=== PATIENT | female | born 1985 | race Caucasian/White ===

== ENCOUNTER 2022-05-06 16:02 | Inpatient (IN) | payer MEDICARE, OTHER, SELFPAY ==
[2022-05-06 18:43] VITALS: BMI 37.4
[2022-05-06 20:05] VITALS: BP 170/83; PULSE 138; RESP 20; TEMP 36.3; O2SAT 100
--- NOTE | 2022-05-06 20:30 | PC.NURSE ---
Patient directly admitted from [facility] for DKA management. Patient arrived via EMS with insulin ggt running at 7.5 ml/hr. On admission patient's glucose was 181, DKA protocol in place and insulin drip restarted based on protocol. Patient's HR 140's and BP > 150's systolic. Patient also c/o 7/10 abdominal pain as well as being nauseous. PRN ketorolac and dilaudid given for pain and zofran given for nausea. IV metoprolol given and HR varied between 100's-110's after being given. Patient did have large, liquid emesis around ~2100 after zofran was given. Hourly blood sugars initiated. Patient able to answer all admission questions appropriately. Call light remains in place.
[2022-05-06] MEDS: INSULIN DRIP PREMIX 100 UNIT/100 ML PLAST..BAG 8.68 UNIT IV (20:31)
--- NOTE | 2022-05-06 20:49 | PM.HP.1 ---
History of Present Illness History of Present Illness Date Patient Seen: 05/06/22 Time Patient Seen: 20:49 Chief complaint: Unknown Narrative: Aruna Durand is a 36 y.o. female with diabetes type 2, hypertension, gastroparesis, GERD, insomnia, depression, anxiety, and borderline personality disorder originating from [place] to assist a friend with ?medical issues is admitted as a direct transfer from [facility] with euglycemic diabetic ketoacidosis. She stated her symptoms started this past Friday with no appetite and when she did eat she had 1 ?[employer]? meal consisting of 2 burritos. On Friday she was continuing to not feel well and took a small bite of food and promptly vomited. She states that she has been thirsty and drank 4 L bottles of water but kept throwing up. She presented to [facility] Emergency Department on Friday which was yesterday and left due to it being very busy. She did return today and was found to be in DKA. She denies fevers sweats or chills but states she is overheated most of the time she has shortness of breath abdominal pain and history of gastric acid. She also has bouts of constipation due to gastroparesis. She denies chest pain, dysuria, diarrhea, or upper lower extremity polyneuropathies. Patient's temp is recorded as 97.4 blood pressure 150/94 heart rate 141 respiratory rate 20 oxygen saturation of 100% on room air she weighs 108.5 kg. White count is 22.4 RBC 5.58 she has a significant left shift of 18,000, platelet count 427, sodium is 135 potassium 4.5 chloride 108 bicarb 9 BUN 3 glucose 182 an COVID PCR is negative. Hepatic liver panel, lactate, procalcitonin and TSH are all pending. [facility] hemoglobin A1c was reported at 7.8. Chest x-ray is ordered and pending. 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 Surgical History (Updated 05/06/22 @ 20:57 by CHICA Freeman) History of bilateral carpal tunnel release Family & Social History Family History (Updated 05/06/22 @ 21:19 by CHICA Freeman) Mother CVA (cerebral vascular accident) Father Diabetes mellitus Social History: , has a s/o, disabled Tobacco & Substance use: Denies tobacco and alcohol use, daily marijuana user 2 bowls/day Meds Home Medications and Allergies Home Medications Medication Instructions Recorded Confirmed Type aspirin 81 mg tablet 81 mg PO DAILY 05/06/22 05/06/22 History levomilnacipran 80 mg capsule,24 80 mg PO DAILY 05/06/22 05/06/22 History hr,extended release (Fetzima) metoprolol succinate 50 mg 75 mg PO BID 05/06/22 05/06/22 History tablet,extended release 24 hr pravastatin 80 mg tablet 80 mg PO DAILY 05/06/22 05/06/22 History Allergies Allergy/AdvReac Type Severity Reaction Status Date / Time polyethylene glycol 3350 Allergy Intermediate ITCHING Verified 05/06/22 21:00 [From Miralax] liraglutide [From Victoza] AdvReac Verified 05/06/22 20:42 metformin AdvReac Verified 05/06/22 20:42 Review of Systems Review of Systems ROS: Yes All systems reviewed with the patient and are negative except as otherwise documented Exam Narrative Exam Narrative: Gen: Alert, oriented, obese 36 y.o. female, appears ill and flushed HEENT: normocephalic, atraumatic, conjunctiva clear, sclera non-icteric, oral mucosa pink and moist Neck: supple, full ROM, no JVD, trachea is midline Resp: Lungs CTA, non-labored breathing CV: RRR, no murmur or rubs Abd: obese, soft, non-tender, normoactive BTs Skin: no lesions or rashes, dry and intact Neuro: Alert and oriented X 4 w/no focal deficits. Speech clear and coherent. Extremities: moves all 4 extremities, is ambulatory, negative Yessy?s sign Psyche: normal mood and affect. Objective Labs Result Diagrams: 05/06/22 21:00 05/06/22 21:00 Assessment & Plan Assessment & Plan narrative: Aruna Durand is admitted to the ICU for managment of a DKA and a leukocytosis of unknown origin. Diabetic euglycemic DKA, acute and present on admission Patient is initiated on insulin drip with DKA protocol Fluids were changed over to D5 half-normal saline she had arrived with an additional 20 mEq KCL BMP Q 4 hours with glucose checks q.1 hour Patient is NPO currently except for meds if she can take them Nausea and vomiting, acute, present on admission Assumed to be due to diabetic gastroparesis and possibly cannaboid/hyperemesis or cyclic vomiting syndrome IV Zofran and Reglan as needed Abdominal pain, acute, present on admission She received a 1 time dose of Dilaudid 0.5 mg at [facility] ED and has been written for as needed as well as IV Toradol if to daily limits Essential hypertension, not well controlled, present on admission She normally takes metoprolol 75 mg p.o. twice daily and when she attempted to take her night dose she threw it right up She is written for IV Lopressor 5 mg for a heart rate greater than 100 and a systolic greater than 140 Leukocytosis of unknown cause, present on admission Procalcitonin, chest x-ray and UA are pending VTE Prophylaxis: Wells risk score 0 X Enoxaparin 40 mg subQ once daily C Bilateral SCDs Patient is admitted to the inpatient intensive care service due to the severity of disease, risks of further disease progression and this stay is expected to exceed 2 midnights. FEN: IV fluids: D5 half-normal saline, diet: NPO and chips, labs: CBC, C/BMP, liver enzymes, Mag, PT/INR Consultants intercept ICU, care and involvement in the patient?s care is appreciated. Dispo: Probable discharge when stabilized Code status: Full code as discussed with the patient who identifies her significant other, Jim her surrogate and POA. [X] I have utilized all available immediate resources to obtain, update, or review of the patient's current medications VTE Deep Vein Thrombosis/Pulmonary Embolism Present on Admission: No MIPS - Admit I confirm the patient?s Advance Care Plan is present, Code status is documented, Surrogate decision maker is in patient?s record: Yes MIPS - DC The patient has current or prior documentation of left ventricular ejection fraction (LVEF) less than 40%, or moderate or severely depressed left ventricular systolic function.: No COVID-19 COVID-19 status: Negative Result date/Date tested (Pos, Neg/Pending): 05/06/22 Time Spent With Patient Critical Care time: I spent a total of 45 minutes of critical care time on this patient's care today; exclusive of procedural time.
[2022-05-06] MEDS: DEXTROSE 5%-0.45% NS 1,000 ML 100 ML IV (21:02)
[2022-05-06] MEDS: KETOROLAC 30 MG/ML VIAL 15 MG IV (21:18)
[2022-05-06] MEDS: ONDANSETRON 4 MG/2 ML INJ IV (21:18)
[2022-05-06 21:25] LABS: Add Manual Diff / Slide Review NO; Basophils Absolute Auto 100 /uL (0-100); Basophils Percent Auto 0.6 % (0-2); Eosinophils Absolute Auto 100 /uL (0-450); Eosinophils Percent Auto 0.3 % (2-4); Hemoglobin 13.6 g/dL (12.0-16.0); Lymphocytes Absolute Auto 3000 /uL (1100-4500); Lymphocytes Percent Auto 13.3 % (25-40); Mean Corpuscular HGB Conc 31.7 % (30-36); Mean Corpuscular Hemoglobin 24.4 PG (26-34); Mean Corpuscular Volume 77.1 fL (80-100); Monocytes Absolute Auto 1500 /uL (0-900); Monocytes Percent Auto 6.7 % (3-14); Neutrophils Absolute Auto 17800 /uL (1500-7000); Neutrophils Percent Auto 79.1 % (50-75); Platelet Count 427 X10^3/uL (150-400); Red Blood Cell Count 5.58 X10^6/uL (4.0-5.2); Red Cell Distribution Width 15.3 % (11.6-14.8); White Blood Cell Count 22.4 X10^3/uL (4.5-11.0)
[2022-05-06 21:31] LABS: BUN Creatinine Ratio 5.2 (6-22); Blood Urea Nitrogen 3 mg/dL (7-17); Calcium 8.9 mg/dL (8.4-10.2); Chloride 108 mmol/L (98-107); Estimated Glomerular Filt Rate > 60 mL/min (>60); Glucose 182 mg/dL (70-100); Sodium 135 mmol/L (137-145)
[2022-05-06 21:32] LABS: HEMOLYSIS 111 (0-50)
[2022-05-06 21:33] LABS: Potassium 4.5 mmol/L (3.4-5.1)
[2022-05-06 21:34] LABS: Carbon Dioxide 9 mmol/L (22-32)
--- NOTE | 2022-05-06 21:35 | DI.RAD.S_ITS ---
PROCEDURE: XR CHEST 1V INDICATIONS: elevated white count, DKA TECHNIQUE: One view of the chest was acquired. COMPARISON: [facility], CT, CT ABDOMEN PELVIS WITH CONTRAST, 05/06/2022, 14:44. FINDINGS: Surgical changes and devices: None. Lungs and pleura: Medial lung apices are partially obscured by patient's neck soft tissues. Visualized lungs are clear. There is mild elevation of the right hemidiaphragm. No pleural effusions or pneumothorax. Mediastinum: Mediastinal contours appear normal. Heart size is normal. Bones and chest wall: No suspicious bony lesions. Overlying soft tissues appear unremarkable. IMPRESSION: 1. No definite acute cardiopulmonary disease. Dictated by: Jose Zhang M.D. on 05/06/2022 at 22:48 Approved by: Jose Zhang M.D. on 05/06/2022 at 22:49
[2022-05-06] MEDS: METOPROLOL TARTRATE 5 MG/5 ML INJ IV (21:52)
[2022-05-06 21:53] LABS: COVID-19 CEPHEID PCR (VTM/NP) Negative (Negative)
[2022-05-06 22:00] VITALS: BP 131/83; PULSE 105; RESP 17; O2SAT 97
[2022-05-06 22:05] VITALS: PULSE 98; RESP 17; O2SAT 98
[2022-05-06] MEDS: HYDROMORPHONE 0.5 MG INJ IV (22:09)
[2022-05-06 22:30] VITALS: PULSE 108; RESP 18; O2SAT 95
[2022-05-06 22:30] LABS: Alanine Aminotransferase 17 IU/L (<35); Albumin 4.6 g/dL (3.5-5.0); Albumin Globulin Ratio 1.2 (1.0-2.8); Alkaline Phosphatase 120 U/L (38-126); Aspartate Aminotransferase 13 IU/L (14-36); Bilirubin Total 0.5 mg/dL (0.2-1.3); Bilirubin Unconjugated 0.4 mg/dL (0.0-1.1); HEMOLYSIS < 15 (0-50); Lactate (Lactic Acid) 0.9 mmol/L (0.7-2.1); Total Protein 8.6 g/dL (6.3-8.2)
[2022-05-06 22:47] LABS: Procalcitonin 0.06 ng/mL (<0.5)
[2022-05-06 23:00] VITALS: BP 118/79; PULSE 113; RESP 18; O2SAT 95
--- NOTE | 2022-05-06 23:09 | PM.CN.EICU ---
History of Present Illness Consult details IF CAMERA ACTIVATED, patient seen via real-time interactive audiovisual communication: Camera activated Date Patient Seen: 04/15/22 Chief complaint: Unknown Consent obtained for tele-veneer sawyer care: Yes Patient Location: ICU Provider location (State): [place] Other participants/roles: LONDON Vyas Narrative: 36 y.o. female with diabetes type 2, hypertension, gastroparesis, GERD, insomnia, depression, anxiety, and borderline personality disorder transferred from from [facility] w/ DKA. Symptoms started 3 days ago; sought medical attention at an ED but left since it was busy. AG 17 w/ normal procalcitonin and lactate. WBC 22.4. [facility] hemoglobin A1c was 7.8. Chest x-ray w/o acute disease. 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 Surgical History History of bilateral carpal tunnel release Family History Mother CVA (cerebral vascular accident) Father Diabetes mellitus Social History marital status: unmarried,single household members: significant other caregiver/support person: No occupational status: disabled Smoking Status: Never smoker alcohol intake: never substance use type: marijuana additional social history: Lives in [place] Current Medications Current Medications Medications: Home Medications aspirin 81 mg tablet 81 mg PO DAILY 05/06/22 [History Confirmed 05/06/22] levomilnacipran 80 mg capsule,24 hr,extended release (Fetzima) 80 mg PO DAILY 05/06/22 [History Confirmed 05/06/22] metoprolol succinate 50 mg tablet,extended release 24 hr 75 mg PO BID 05/06/22 [History Confirmed 05/06/22] pravastatin 80 mg tablet 80 mg PO DAILY 05/06/22 [History Confirmed 05/06/22] Visit Medications (administered) Generic Name Dose Route Start Last Admin Trade Name Freq PRN Reason Stop Dose Admin Hydromorphone HCl 0.5 mg 05/06/22 21:01 05/06/22 22:09 Hydromorphone 0.5 Mg Inj IV 0.5 mg Q4H PRN Administration Pain, Severe (7-10) INSULIN DRIP PREMIX 100 unit in 100 mls @ 6 mls/hr 05/06/22 19:00 05/06/22 22:06 Myxredlin Drip Premix IV 0.08 units/kg/hr TITRATE FABRICIO 8.68 mls/hr Titration Protocol Dextrose/Sodium Chloride 1,000 mls @ 100 mls/hr 05/06/22 20:45 05/06/22 21:02 Dextrose 5%-0.45% Ns IV 100 mls/hr CONT FABRICIO Administration Ketorolac Tromethamine 15 mg 05/06/22 21:01 05/06/22 21:18 Ketorolac 30 Mg/Ml Vial IV 05/11/22 21:01 15 mg Q8H PRN Administration Pain, Moderate (4-6) Metoprolol Succinate 75 mg 05/06/22 21:00 05/06/22 21:34 Metoprolol Er 50 Mg Tablet PO Not Given BID FABRICIO Metoprolol Tartrate 5 mg 05/06/22 21:48 05/06/22 21:52 Metoprolol Tartrate 5 Mg/5 Ml Inj IV 5 mg Q2HR PRN Administration Heart Rate- High Ondansetron HCl 4 mg 05/06/22 20:44 05/06/22 21:18 Ondansetron 4 Mg/2 Ml Inj IV 4 mg Q6HR PRN Administration Nausea And Vomiting Exam Vital Signs (past 8 hours): - 05/06/22 20:05 05/06/22 22:00 05/06/22 22:00 Temperature 97.4 F L Pulse Rate 138 H 105 H Respiratory Rate 20 17 Blood Pressure 170/83 H 131/83 Pulse Oximetry 100 97 Oxygen Delivery Method 05/06/22 22:05 05/06/22 20:30 Temperature Pulse Rate 98 H Respiratory Rate 17 Blood Pressure Pulse Oximetry 98 Oxygen Delivery Method Room Air Oxygen Delivery Method Room Air Const General: comfortable Resp Effort & Inspection: normal respiratory effort Objective Labs Result Diagrams: 05/06/22 21:00 05/06/22 21:00 Labs: Laboratory Results - last 24 hr 05/06/22 05/06/2205/06/22 20:45 20:45 21:00 WBC 22.4 H RBC 5.58 H Hgb 13.6 Hct 43.0 MCV 77.1 L MCH 24.4 L MCHC 31.7 RDW 15.3 H Plt Count 427 H Neut % (Auto) 79.1 H Lymph % (Auto) 13.3 L [place] % (Auto) 6.7 Eos % (Auto) 0.3 L Baso % (Auto) 0.6 Neut # (Auto) 27812 H Lymph # (Auto) 3000 [place] # (Auto) 1500 H Eos # (Auto) 100 Baso # (Auto) 100 Sodium Potassium Chloride Carbon Dioxide BUN Creatinine Estimated GFR BUN/Creatinine Ratio Glucose Lactate Calcium Total Bilirubin Conjugated Bilirubin Unconjugated Bilirubin AST ALT Alkaline Phosphatase Total Protein Albumin Globulin Albumin/Globulin Ratio Procalcitonin Nasal Screen MRSA (PCR) Negative for mrsa SARS-CoV-2 (PCR) Negative 05/06/22 05/06/22 05/06/22 21:00 21:45 21:45 WBC RBC Hgb Hct MCV MCH MCHC RDW Plt Count Neut % (Auto) Lymph % (Auto) [place] % (Auto) Eos % (Auto) Baso % (Auto) Neut # (Auto) Lymph # (Auto) [place] # (Auto) Eos # (Auto) Baso # (Auto) Sodium 135 L Potassium 4.5 Chloride 108 H Carbon Dioxide 9 L* BUN 3 L Creatinine 0.58 Estimated GFR > 60 BUN/Creatinine Ratio 5.2 L Glucose 182 H Lactate 0.9 Calcium 8.9 Total Bilirubin Conjugated Bilirubin Unconjugated Bilirubin AST ALT Alkaline Phosphatase Total Protein Albumin Globulin Albumin/Globulin Ratio Procalcitonin 0.06 Nasal Screen MRSA (PCR) SARS-CoV-2 (PCR) 05/06/22 21:45 WBC RBC Hgb Hct MCV MCH MCHC RDW Plt Count Neut % (Auto) Lymph % (Auto) [place] % (Auto) Eos % (Auto) Baso % (Auto) Neut # (Auto) Lymph # (Auto) [place] # (Auto) Eos # (Auto) Baso # (Auto) Sodium Potassium Chloride Carbon Dioxide BUN Creatinine Estimated GFR BUN/Creatinine Ratio Glucose Lactate Calcium Total Bilirubin 0.5 Conjugated Bilirubin 0.0 Unconjugated Bilirubin 0.4 AST 13 L ALT 17 Alkaline Phosphatase 120 Total Protein 8.6 H Albumin 4.6 Globulin 4.0 Albumin/Globulin Ratio 1.2 Procalcitonin Nasal Screen MRSA (PCR) SARS-CoV-2 (PCR) Assessment & Plan Assessment and plan (1) DKA (diabetic ketoacidosis): Qualifiers: Diabetes mellitus type: other specified (including JAYSHREE) Diabetes mellitus complication detail: without coma Qualified Code(s): E13.10 - Other specified diabetes mellitus with ketoacidosis without coma Status: Acute Plan: -Continue DKA protocol -Urinalysis and status will be checked if not already checked @ outside ED --> discussed w/ LONDON Asael Time Spent With Patient Critical Care time: I spent a total of 15 minutes of time on this patient's care today.
[2022-05-06 23:30] VITALS: PULSE 103; RESP 19; O2SAT 95
[2022-05-07] VITALS (47 sets, daily range): BP systolic 110–163; BP diastolic 58–96; PULSE 93–139; RESP 8–59; TEMP 36.4–37.3; O2SAT 95–100
[2022-05-07] MEDS: HYDROMORPHONE 0.5 MG INJ IV ×4 (04:25→21:54)
[2022-05-07] MEDS: ONDANSETRON 4 MG/2 ML INJ IV ×2 (04:25→20:31)
[2022-05-07 05:26] LABS: Add Manual Diff / Slide Review NO; Basophils Absolute Auto 100 /uL (0-100); Basophils Percent Auto 0.5 % (0-2); Eosinophils Absolute Auto 100 /uL (0-450); Eosinophils Percent Auto 0.7 % (2-4); Hematocrit 40.3 % (36-46); Hemoglobin 12.8 g/dL (12.0-16.0); Lymphocytes Absolute Auto 2600 /uL (1100-4500); Lymphocytes Percent Auto 18.7 % (25-40); Mean Corpuscular HGB Conc 31.7 % (30-36); Mean Corpuscular Volume 75.9 fL (80-100); Monocytes Absolute Auto 900 /uL (0-900); Monocytes Percent Auto 6.8 % (3-14); Neutrophils Absolute Auto 10000 /uL (1500-7000); Neutrophils Percent Auto 73.3 % (50-75); Platelet Count 311 X10^3/uL (150-400); Red Blood Cell Count 5.31 X10^6/uL (4.0-5.2); Red Cell Distribution Width 15.2 % (11.6-14.8); White Blood Cell Count 13.6 X10^3/uL (4.5-11.0)
[2022-05-07 05:34] LABS: Alanine Aminotransferase 16 IU/L (<35); Albumin 4.3 g/dL (3.5-5.0); Albumin Globulin Ratio 1.1 (1.0-2.8); Alkaline Phosphatase 107 U/L (38-126); Aspartate Aminotransferase 13 IU/L (14-36); BUN Creatinine Ratio 7.8 (6-22); Bilirubin Total 0.5 mg/dL (0.2-1.3); Blood Urea Nitrogen 4 mg/dL (7-17); Calcium 8.9 mg/dL (8.4-10.2); Carbon Dioxide 13 mmol/L (22-32); Chloride 107 mmol/L (98-107); Estimated Glomerular Filt Rate > 60 mL/min (>60); Globulin 3.8 g/dL (1.7-4.1); Glucose 186 mg/dL (70-100); HEMOLYSIS < 15 (0-50); Potassium 3.8 mmol/L (3.4-5.1); Sodium 135 mmol/L (137-145); Total Protein 8.1 g/dL (6.3-8.2)
[2022-05-07 05:37] LABS: Ketones (Beta-Hydroxybutyrate) 3.56 mmol/L (<0.27)
[2022-05-07] MEDS: METOPROLOL TARTRATE 5 MG/5 ML INJ IV ×2 (06:06→09:29)
[2022-05-07 06:13] LABS: TSH w/ Reflex to FT4 2.36 uIU/mL (0.47-4.68)
[2022-05-07] MEDS: DEXTROSE 5%-0.45% NS 1,000 ML 100 ML IV ×2 (07:06→17:05)
[2022-05-07 07:07] LABS: Appearance Urine UA CLEAR; Bilirubin Urine UA 1+ (NEGATIVE); Color Urine UA YELLOW; Glucose Urine UA 1+ g/dL (Negative); Ketones Urine UA 3+ (NEGATIVE); Leukocyte Esterase Urine UA NEGATIVE (NEGATIVE); Nitrite Urine UA NEGATIVE (Negative); Occult Blood Urine UA 1+ (Negative); Protein Urine UA 2+ (Negative); Specific Gravity Urine UA 1.025 (1.000-1.035); Urobilinogen Urine UA 0.2 E.U./dL (0.2)
[2022-05-07 07:14] LABS: Bacteria Urine None Seen; Ictotest Urine Negative (Negative); RBC Urine 1-5/HPF (0-5/HPF); Squamous Epithelial Cell Urine 1-5 /HPF (0-5/HPF); WBC Urine None Seen (0-5/HPF)
[2022-05-07 07:15] LABS: Culture Indicated Urine Cult Not Indicated; Hyaline Casts Urine 1-5/LPF
--- NOTE | 2022-05-07 07:55 | P.PN_ITS ---
Subjective Subjective Date Patient Seen: 05/07/22 Time Patient Seen: 11:00 Interval history: Continues to have nausea and cannot tolerate po intake. Still on insulin drip as gap now at 14 and hasn't closed yet. She notes generalized abd pain but not specifically in RUQ. Has not had BM in 4 days. Exam Vital Signs (past 8 hours): - 05/07/22 00:00 05/07/22 00:00 05/07/22 00:00 Temperature Pulse Rate 110 H Respiratory Rate 19 Blood Pressure 131/93 H Pulse Oximetry 96 Oxygen Delivery Method Room Air 05/07/22 00:00 05/07/22 00:30 05/07/22 01:00 Temperature 99.2 F Pulse Rate 112 H Respiratory Rate 19 Blood Pressure 110/67 Pulse Oximetry 95 Oxygen Delivery Method 05/07/22 01:00 05/07/22 01:30 05/07/22 02:00 Temperature Pulse Rate 100 H 105 H Respiratory Rate 18 20 Blood Pressure 135/81 Pulse Oximetry 97 97 Oxygen Delivery Method 05/07/22 02:00 05/07/22 02:30 05/07/22 03:00 Temperature Pulse Rate 108 H 112 H Respiratory Rate 20 21 Blood Pressure 131/88 Pulse Oximetry 100 96 Oxygen Delivery Method 05/07/22 03:00 05/07/22 03:30 05/07/22 04:00 Temperature Pulse Rate 124 H 105 H 133 H Respiratory Rate 15 19 30 H Blood Pressure Pulse Oximetry 96 99 99 Oxygen Delivery Method 05/07/22 04:00 05/07/22 05:00 05/07/22 04:00 Temperature 97.5 F L Pulse Rate Respiratory Rate Blood Pressure 142/78 H Pulse Oximetry Oxygen Delivery Method Room Air 05/07/22 05:00 05/07/22 05:00 05/07/22 05:05 Temperature Pulse Rate 119 H 117 H Respiratory Rate 16 16 Blood Pressure 137/71 Pulse Oximetry 96 96 Oxygen Delivery Method 05/07/22 05:30 05/07/22 06:00 05/07/22 06:00 Temperature Pulse Rate 119 H 119 H Respiratory Rate 17 13 Blood Pressure 127/80 Pulse Oximetry 95 96 Oxygen Delivery Method Oxygen Delivery Method Room Air Narrative Exam Narrative: Gen: Alert, oriented, obese 36 y.o. female, appears ill and diaphoretic HEENT: normocephalic, atraumatic, conjunctiva clear, sclera non-icteric, oral mucosa pink and moist Neck: supple, full ROM, no JVD, trachea is midline Resp: Lungs CTA, non-labored breathing CV: RRR, no murmur or rubs Abd: obese, soft, generalized tenderness, reduced BTs Skin: no lesions or rashes, dry and intact Neuro: Alert and oriented X 4 w/no focal deficits. Speech clear and coherent. Extremities: moves all 4 extremities, is ambulatory, negative Yessy?s sign Psyche: normal mood and affect. Objective Labs Result Diagrams: 05/07/22 05:00 05/07/22 13:00 Labs: Laboratory Results - last 24 hr 05/06/22 05/06/22 05/06/22 20:45 20:45 21:00 WBC 22.4 H RBC 5.58 H Hgb 13.6 Hct 43.0 MCV 77.1 L MCH 24.4 L MCHC 31.7 RDW 15.3 H Plt Count 427 H Neut % (Auto) 79.1 H Lymph % (Auto) 13.3 L [place] % (Auto) 6.7 Eos % (Auto) 0.3 L Baso % (Auto) 0.6 Neut # (Auto) 92942 H Lymph # (Auto) 3000 [place] # (Auto) 1500 H Eos # (Auto) 100 Baso # (Auto) 100 Sodium Potassium Chloride Carbon Dioxide BUN Creatinine Estimated GFR BUN/Creatinine Ratio Glucose Lactate Calcium Total Bilirubin Conjugated Bilirubin Unconjugated Bilirubin AST ALT Alkaline Phosphatase Total Protein Albumin Globulin Albumin/Globulin Ratio Procalcitonin TSH Urine Color Urine Appearance Urine pH Ur Specific [place] Urine Protein Urine Glucose (UA) Urine Ketones Urine Occult Blood Urine Nitrate Urine Bilirubin Ur Bilirubin Confirm Urine Urobilinogen Ur Leukocyte Esterase Urine RBC Urine WBC Ur Squamous Epith Cells Urine Bacteria Hyaline Casts Ur Culture Indicated? Nasal Screen MRSA (PCR) Negative for mrsa Ketones SARS-CoV-2 (PCR) Negative 05/06/22 05/06/22 05/06/22 21:00 21:45 21:45 WBC RBC Hgb Hct MCV MCH MCHC RDW Plt Count Neut % (Auto) Lymph % (Auto) [place] % (Auto) Eos % (Auto) Baso % (Auto) Neut # (Auto) Lymph # (Auto) [place] # (Auto) Eos # (Auto) Baso # (Auto) Sodium 135 L Potassium 4.5 Chloride 108 H Carbon Dioxide 9 L* BUN 3 L Creatinine 0.58 Estimated GFR > 60 BUN/Creatinine Ratio 5.2 L Glucose 182 H Lactate 0.9 Calcium 8.9 Total Bilirubin Conjugated Bilirubin Unconjugated Bilirubin AST ALT Alkaline Phosphatase Total Protein Albumin Globulin Albumin/Globulin Ratio Procalcitonin 0.06 TSH Urine Color Urine Appearance Urine pH Ur Specific [place] Urine Protein Urine Glucose (UA) Urine Ketones Urine Occult Blood Urine Nitrate Urine Bilirubin Ur Bilirubin Confirm Urine Urobilinogen Ur Leukocyte Esterase Urine RBC Urine WBC Ur Squamous Epith Cells Urine Bacteria Hyaline Casts Ur Culture Indicated? Nasal Screen MRSA (PCR) Ketones SARS-CoV-2 (PCR) 05/06/22 05/07/22 05/07/22 21:45 05:00 05:00 WBC 13.6 H RBC 5.31 H Hgb 12.8 Hct 40.3 MCV 75.9 L MCH 24.0 L MCHC 31.7 RDW 15.2 H Plt Count 311 Neut % (Auto) 73.3 Lymph % (Auto) 18.7 L [place] % (Auto) 6.8 Eos % (Auto) 0.7 L Baso % (Auto) 0.5 Neut # (Auto) 69271 H Lymph # (Auto) 2600 [place] # (Auto) 900 Eos # (Auto) 100 Baso # (Auto) 100 Sodium Potassium Chloride Carbon Dioxide BUN Creatinine Estimated GFR BUN/Creatinine Ratio Glucose Lactate Calcium Total Bilirubin 0.5 Conjugated Bilirubin 0.0 Unconjugated Bilirubin 0.4 AST 13 L ALT 17 Alkaline Phosphatase 120 Total Protein 8.6 H Albumin 4.6 Globulin 4.0 Albumin/Globulin Ratio 1.2 Procalcitonin TSH 2.36 Urine Color Urine Appearance Urine pH Ur Specific [place] Urine Protein Urine Glucose (UA) Urine Ketones Urine Occult Blood Urine Nitrate Urine Bilirubin Ur Bilirubin Confirm Urine Urobilinogen Ur Leukocyte Esterase Urine RBC Urine WBC Ur Squamous Epith Cells Urine Bacteria Hyaline Casts Ur Culture Indicated? Nasal Screen MRSA (PCR) Ketones SARS-CoV-2 (PCR) 05/07/22 05/07/22 05/07/22 05:00 05:00 06:49 WBC RBC Hgb Hct MCV MCH MCHC RDW Plt Count Neut % (Auto) Lymph % (Auto) [place] % (Auto) Eos % (Auto) Baso % (Auto) Neut # (Auto) Lymph # (Auto) [place] # (Auto) Eos # (Auto) Baso # (Auto) Sodium 135 L Potassium 3.8 Chloride 107 Carbon Dioxide 13 L BUN 4 L Creatinine 0.51 L Estimated GFR > 60 BUN/Creatinine Ratio 7.8 Glucose 186 H Lactate Calcium 8.9 Total Bilirubin 0.5 Conjugated Bilirubin Unconjugated Bilirubin AST 13 L ALT 16 Alkaline Phosphatase 107 Total Protein 8.1 Albumin 4.3 Globulin 3.8 Albumin/Globulin Ratio 1.1 Procalcitonin TSH Urine Color Yellow Urine Appearance Clear Urine pH 5.0 Ur Specific [place] 1.025 Urine Protein 2+ H Urine Glucose (UA) 1+ H Urine Ketones 3+ H Urine Occult Blood 1+ H Urine Nitrate Negative Urine Bilirubin 1+ H Ur Bilirubin Confirm Negative Urine Urobilinogen 0.2 Ur Leukocyte Esterase Negative Urine RBC 1-5/hpf Urine WBC None seen Ur Squamous Epith Cells 1-5 /hpf Urine Bacteria None seen Hyaline Casts 1-5/lpf Ur Culture Indicated? 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 Surgical History History of bilateral carpal tunnel release Family History Mother CVA (cerebral vascular accident) Father Diabetes mellitus Social History marital status: unmarried,single household members: significant other caregiver/support person: No occupational status: disabled Smoking Status: Never smoker alcohol intake: never substance use type: marijuana additional social history: Lives in [place] Assessment & Plan Assessment & Plan narrative: Euglycemic DKA, acute and present on admission * patient takes jardiance, presented to [facility] with anion gap 31, bicarb 9 and pH 7.19 although BG of 250 * continue insulin drip with DKA protocol * BMP Q 4 hours with glucose checks q.1 hour * Patient is NPO currently except for meds if she can take them, advance diet as tolerated * anion gap now at 14, will start home humulin at 50 units BID normally takes 70 units BID Nausea and vomiting, acute, present on admission * Potentially due to DKA * Abd US shows gallbladder sludge, stones and mild distention, but no wall thickening or CBD dilation. With normal LFT's and alk phos cholecystitis unlikely. * IV Zofran and Reglan as needed Abdominal pain, acute, present on admission * She received a 1 time dose of Dilaudid 0.5 mg at [facility] ED and has been written for as needed as well as IV Toradol if to daily limits Essential hypertension, not well controlled, present on admission * She normally takes metoprolol 75 mg p.o. twice daily and when she attempted to take her night dose she threw it up Leukocytosis of unknown cause, present on admission, improving * Procalcitonin, chest x-ray and UA normal * likely stress reaction with dehydration from vomiting as all 3 cell lines decreased with fluids * currently 13 down from 22 VTE Prophylaxis: Enoxaparin 40 mg subQ once daily Dispo: Home in 1-2 days. Code status: Full code as discussed with the patient who identifies her significant other, Jim her surrogate and POA. COVID-19 COVID-19 status: Negative Result date/Date tested (Pos, Neg/Pending): 05/06/22 Time Spent With Patient Critical Care time: I spent a total of [] minutes of critical care time on this patient's care today; this time is exclusive of procedural time. Quality VTE Deep Vein Thrombosis/Pulmonary Embolism Present on Admission: No
[2022-05-07] MEDS: ENOXAPARIN 40 MG/0.4 ML SYRINGE SUBCUT (08:56)
[2022-05-07] MEDS: METOCLOPRAMIDE 10 MG/2 ML INJ IV (08:56)
[2022-05-07] MEDS: POTASSIUM CHLORIDE IN WATER 10 MEQ/100 ML PIGGYBACK 100 MEQ IV ×4 (08:57→11:49)
[2022-05-07] MEDS: INSULIN DRIP PREMIX 100 UNIT/100 ML PLAST..BAG 5.4 UNIT IV (09:06)
[2022-05-07 09:11] LABS: BUN Creatinine Ratio 8.3 (6-22); Blood Urea Nitrogen 4 mg/dL (7-17); Calcium 9.1 mg/dL (8.4-10.2); Carbon Dioxide 16 mmol/L (22-32); Chloride 106 mmol/L (98-107); Estimated Glomerular Filt Rate > 60 mL/min (>60); Glucose 156 mg/dL (70-100); HEMOLYSIS 24 (0-50); Sodium 136 mmol/L (137-145)
--- NOTE | 2022-05-07 09:58 | DI.US.S_ITS ---
PROCEDURE: US ABDOMEN LIMITED INDICATIONS: Assessed for cholecystitis, CBD dilation, liver pathology TECHNIQUE: Real-time focused scanning was performed of the abdomen, with image documentation. COMPARISON: None. FINDINGS: Limited exam due to bowel gas patient body habitus. Poorly visualized liver with diffuse moderate hepatic steatosis. No focal hepatic mass identified. Distended appearance of the gallbladder with moderate volume dependently layering material likely representing sludge or small stones. Gallbladder wall is not appear thickened. There is no definite pericholecystic fluid. No intrahepatic or extrahepatic biliary ductal dilatation. Pancreas is obscured by bowel gas and body habitus. IMPRESSION: Limited exam due to bowel gas and body habitus. Distended gallbladder containing sludge or small gallstones. No wall thickening or pericholecystic fluid to serve as definitive evidence of cholecystitis, although the distension raises concern for cystic duct obstruction. Early cholecystitis cannot be completely excluded. Dictated by: Breezy Paul M.D. on 05/07/2022 at 11:38 Approved by: Breezy Paul M.D. on 05/07/2022 at 11:40
--- NOTE | 2022-05-07 09:59 | PM.PN.EICU ---
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 Patient Location: ICU Provider location (State): [place] Other participants/roles: na Current Medications Current Medications Medications: Home Medications aspirin 81 mg tablet 81 mg PO DAILY 05/06/22 [History Confirmed 05/06/22] levomilnacipran 80 mg capsule,24 hr,extended release (Fetzima) 80 mg PO DAILY 05/06/22 [History Confirmed 05/06/22] metoprolol succinate 50 mg tablet,extended release 24 hr 75 mg PO BID 05/06/22 [History Confirmed 05/06/22] pravastatin 80 mg tablet 80 mg PO DAILY 05/06/22 [History Confirmed 05/06/22] Visit Medications (administered) Generic Name Dose Route Start Last Admin Trade Name Freq PRN Reason Stop Dose Admin Aspirin 81 mg 05/07/22 09:00 05/07/22 08:07 Aspirin 81 Mg Chew Tab PO Not Given DAILY FABRICIO Enoxaparin Sodium 40 mg 05/07/22 09:00 05/07/22 08:56 Enoxaparin 40 Mg/0.4 Ml Syringe SUBCUT 40 mg DAILY FABRICIO Administration Hydromorphone HCl 0.5 mg 05/06/22 21:01 05/07/22 04:25 Hydromorphone 0.5 Mg Inj IV 0.5 mg Q4H PRN Administration Pain, Severe (7-10) INSULIN DRIP PREMIX 100 unit in 100 mls @ 6 mls/hr 05/06/22 19:00 05/07/22 09:06 Myxredlin Drip Premix IV 0.05 units/kg/hr TITRATE FABRICIO 5.4 mls/hr Administration Protocol Dextrose/Sodium Chloride 1,000 mls @ 100 mls/hr 05/06/22 20:45 05/07/22 07:06 Dextrose 5%-0.45% Ns IV 100 mls/hr CONT FABRICIO Administration POTASSIUM CHLORIDE IN WATER 10 meq in 100 mls @ 100 mls/hr 05/07/22 08:00 05/07/22 08:57 Potassium Cl 10 Meq/100 Ml Radha IV 05/07/22 11:59 100 mls/hr Q1H FABRICIO Administration Ketorolac Tromethamine 15 mg 05/06/22 21:01 05/06/22 21:18 Ketorolac 30 Mg/Ml Vial IV 05/11/22 21:01 15 mg Q8H PRN Administration Pain, Moderate (4-6) Metoclopramide HCl 10 mg 05/06/22 20:44 05/07/22 08:56 Metoclopramide 10 Mg/2 Ml Inj IV 10 mg Q6HR PRN Administration Nausea And Vomiting Metoprolol Succinate 75 mg 05/06/22 21:00 05/06/22 21:34 Metoprolol Er 50 Mg Tablet PO Not Given BID [facility] Metoprolol Tartrate 5 mg 05/06/22 21:48 05/07/22 09:29 Metoprolol Tartrate 5 Mg/5 Ml Inj IV 5 mg Q2HR PRN Administration Heart Rate- High Ondansetron HCl 4 mg 05/06/22 20:44 05/07/22 04:25 Ondansetron 4 Mg/2 Ml Inj IV 4 mg Q6HR PRN Administration Nausea And Vomiting Pravastatin Sodium 80 mg 05/07/22 09:00 05/07/22 08:07 Pravastatin 20 Mg Tablet PO Not Given DAILY [facility] Objective Labs Result Diagrams: 05/07/22 05:00 05/07/22 08:56 Labs: Laboratory Results - last 24 hr 05/06/22 05/06/22 05/06/22 20:45 20:45 21:00 WBC 22.4 H RBC 5.58 H Hgb 13.6 Hct 43.0 MCV 77.1 L MCH 24.4 L MCHC 31.7 RDW 15.3 H Plt Count 427 H Neut % (Auto) 79.1 H Lymph % (Auto) 13.3 L [place] % (Auto) 6.7 Eos % (Auto) 0.3 L Baso % (Auto) 0.6 Neut # (Auto) 97555 H Lymph # (Auto) 3000 [place] # (Auto) 1500 H Eos # (Auto) 100 Baso # (Auto) 100 Sodium Potassium Chloride Carbon Dioxide BUN Creatinine Estimated GFR BUN/Creatinine Ratio Glucose Lactate Calcium Total Bilirubin Conjugated Bilirubin Unconjugated Bilirubin AST ALT Alkaline Phosphatase Total Protein Albumin Globulin Albumin/Globulin Ratio Procalcitonin TSH Urine Color Urine Appearance Urine pH Ur Specific [place] Urine Protein Urine Glucose (UA) Urine Ketones Urine Occult Blood Urine Nitrate Urine Bilirubin Ur Bilirubin Confirm Urine Urobilinogen Ur Leukocyte Esterase Urine RBC Urine WBC Ur Squamous Epith Cells Urine Bacteria Hyaline Casts Ur Culture Indicated? Nasal Screen MRSA (PCR) Negative for mrsa Ketones SARS-CoV-2 (PCR) Negative 05/06/22 05/06/22 05/06/22 21:00 21:45 21:45 WBC RBC Hgb Hct MCV MCH MCHC RDW Plt Count Neut % (Auto) Lymph % (Auto) [place] % (Auto) Eos % (Auto) Baso % (Auto) Neut # (Auto) Lymph # (Auto) [place] # (Auto) Eos # (Auto) Baso # (Auto) Sodium 135 L Potassium 4.5 Chloride 108 H Carbon Dioxide 9 L* BUN 3 L Creatinine 0.58 Estimated GFR > 60 BUN/Creatinine Ratio 5.2 L Glucose 182 H Lactate 0.9 Calcium 8.9 Total Bilirubin Conjugated Bilirubin Unconjugated Bilirubin AST ALT Alkaline Phosphatase Total Protein Albumin Globulin Albumin/Globulin Ratio Procalcitonin 0.06 TSH Urine Color Urine Appearance Urine pH Ur Specific [place] Urine Protein Urine Glucose (UA) Urine Ketones Urine Occult Blood Urine Nitrate Urine Bilirubin Ur Bilirubin Confirm Urine Urobilinogen Ur Leukocyte Esterase Urine RBC Urine WBC Ur Squamous Epith Cells Urine Bacteria Hyaline Casts Ur Culture Indicated? Nasal Screen MRSA (PCR) Ketones SARS-CoV-2 (PCR) 05/06/22 05/07/22 05/07/22 21:45 05:00 05:00 WBC 13.6 H RBC 5.31 H Hgb 12.8 Hct 40.3 MCV 75.9 L MCH 24.0 L MCHC 31.7 RDW 15.2 H Plt Count 311 Neut % (Auto) 73.3 Lymph % (Auto) 18.7 L [place] % (Auto) 6.8 Eos % (Auto) 0.7 L Baso % (Auto) 0.5 Neut # (Auto) 14743 H Lymph # (Auto) 2600 [place] # (Auto) 900 Eos # (Auto) 100 Baso # (Auto) 100 Sodium Potassium Chloride Carbon Dioxide BUN Creatinine Estimated GFR BUN/Creatinine Ratio Glucose Lactate Calcium Total Bilirubin 0.5 Conjugated Bilirubin 0.0 Unconjugated Bilirubin 0.4 AST 13 L ALT 17 Alkaline Phosphatase 120 Total Protein 8.6 H Albumin 4.6 Globulin 4.0 Albumin/Globulin Ratio 1.2 Procalcitonin TSH 2.36 Urine Color Urine Appearance Urine pH Ur Specific [place] Urine Protein Urine Glucose (UA) Urine Ketones Urine Occult Blood Urine Nitrate Urine Bilirubin Ur Bilirubin Confirm Urine Urobilinogen Ur Leukocyte Esterase Urine RBC Urine WBC Ur Squamous Epith Cells Urine Bacteria Hyaline Casts Ur Culture Indicated? Nasal Screen MRSA (PCR) Ketones SARS-CoV-2 (PCR) 05/07/22 05/07/22 05/07/22 05:00 05:00 06:49 WBC RBC Hgb Hct MCV MCH MCHC RDW Plt Count Neut % (Auto) Lymph % (Auto) [place] % (Auto) Eos % (Auto) Baso % (Auto) Neut # (Auto) Lymph # (Auto) [place] # (Auto) Eos # (Auto) Baso # (Auto) Sodium 135 L Potassium 3.8 Chloride 107 Carbon Dioxide 13 L BUN 4 L Creatinine 0.51 L Estimated GFR > 60 BUN/Creatinine Ratio 7.8 Glucose 186 H Lactate Calcium 8.9 Total Bilirubin 0.5 Conjugated Bilirubin Unconjugated Bilirubin AST 13 L ALT 16 Alkaline Phosphatase 107 Total Protein 8.1 Albumin 4.3 Globulin 3.8 Albumin/Globulin Ratio 1.1 Procalcitonin TSH Urine Color Yellow Urine Appearance Clear Urine pH 5.0 Ur Specific [place] 1.025 Urine Protein 2+ H Urine Glucose (UA) 1+ H Urine Ketones 3+ H Urine Occult Blood 1+ H Urine Nitrate Negative Urine Bilirubin 1+ H Ur Bilirubin Confirm Negative Urine Urobilinogen 0.2 Ur Leukocyte Esterase Negative Urine RBC 1-5/hpf Urine WBC None seen Ur Squamous Epith Cells 1-5 /hpf Urine Bacteria None seen Hyaline Casts 1-5/lpf Ur Culture Indicated? Cult not indicated Nasal Screen MRSA (PCR) Ketones 3.56 H SARS-CoV-2 (PCR) 05/07/22 08:56 WBC RBC Hgb Hct MCV MCH MCHC RDW Plt Count Neut % (Auto) Lymph % (Auto) [place] % (Auto) Eos % (Auto) Baso % (Auto) Neut # (Auto) Lymph # (Auto) [place] # (Auto) Eos # (Auto) Baso # (Auto) Sodium 136 L Potassium 4.0 Chloride 106 Carbon Dioxide 16 L BUN 4 L Creatinine 0.48 L Estimated GFR > 60 BUN/Creatinine Ratio 8.3 Glucose 156 H Lactate Calcium 9.1 Total Bilirubin Conjugated Bilirubin Unconjugated Bilirubin AST ALT Alkaline Phosphatase Total Protein Albumin Globulin Albumin/Globulin Ratio Procalcitonin TSH Urine Color Urine Appearance Urine pH Ur Specific [place] Urine Protein Urine Glucose (UA) Urine Ketones Urine Occult Blood Urine Nitrate Urine Bilirubin Ur Bilirubin Confirm Urine Urobilinogen Ur Leukocyte Esterase Urine RBC Urine WBC Ur Squamous Epith Cells Urine Bacteria Hyaline Casts Ur Culture Indicated? Nasal Screen MRSA (PCR) Ketones SARS-CoV-2 (PCR) Exam Vital Signs (past 8 hours): - 05/07/22 02:00 05/07/22 02:00 05/07/22 02:30 Temperature Pulse Rate 108 H 112 H Respiratory Rate 20 21 Blood Pressure 135/81 Pulse Oximetry 100 96 Oxygen Delivery Method 05/07/22 03:00 05/07/22 03:00 05/07/22 03:30 Temperature Pulse Rate 124 H 105 H Respiratory Rate 15 19 Blood Pressure 131/88 Pulse Oximetry 96 99 Oxygen Delivery Method 05/07/22 04:00 05/07/22 04:00 05/07/22 05:00 Temperature 97.5 F L Pulse Rate 133 H Respiratory Rate 30 H Blood Pressure Pulse Oximetry 99 Oxygen Delivery Method Room Air 05/07/22 04:00 05/07/22 05:00 05/07/22 05:00 Temperature Pulse Rate 119 H Respiratory Rate 16 Blood Pressure 142/78 H 137/71 Pulse Oximetry 96 Oxygen Delivery Method 05/07/22 05:05 05/07/22 05:30 05/07/22 06:00 Temperature Pulse Rate 117 H 119 H Respiratory Rate 16 17 Blood Pressure 127/80 Pulse Oximetry 96 95 Oxygen Delivery Method 05/07/22 06:00 05/07/22 06:30 05/07/22 07:00 Temperature Pulse Rate 119 H 99 H Respiratory Rate 13 19 Blood Pressure 125/71 Pulse Oximetry 96 96 Oxygen Delivery Method 05/07/22 07:00 05/07/22 07:30 05/07/22 08:00 Temperature Pulse Rate 93 H 94 H Respiratory Rate 19 24 Blood Pressure 116/72 Pulse Oximetry 96 99 Oxygen Delivery Method 05/07/22 08:00 05/07/22 08:30 05/07/22 09:00 Temperature Pulse Rate 111 H 103 H Respiratory Rate 21 18 Blood Pressure 110/69 Pulse Oximetry 100 96 Oxygen Delivery Method 05/07/22 09:00 05/07/22 09:00 Temperature 98.3 F Pulse Rate 113 H Respiratory Rate 16 Blood Pressure Pulse Oximetry 98 Oxygen Delivery Method Room Air Oxygen Delivery Method Room Air Quality TeleICU VTE Deep Vein Thrombosis/Pulmonary Embolism Present on Admission: No Assessment & Plan Assessment & Plan narrative: patient seen with bedside nurse chart/labs/imaging reviewed feels better currently afebrile, HD stable, mild tachycardia bicarb 16 AG 14 suggest -continue dka protocol -avoid treating sinus tachycardia with lopressor pushes -monitor ins/outs -replace lytes prn -gi/dvt ppx -please call eICU if condition changes Time Spent With Patient Critical Care time: I spent a total of [] minutes of critical care time on this patient's care today; this time is exclusive of procedural time.
[2022-05-07] MEDS: FAMOTIDINE 20 MG/2 ML VIAL IV ×2 (10:31→21:06)
--- NOTE | 2022-05-07 10:53 | CM.DANOTE ---
DCP Assessment: Payor confirmed: Medicare PCP confirmed: Ella Shelton MD (located in [place]). Pt is a 36 y.o. F who was transferred from [facility] for management of DKA. Pt has a health history of DM Type 2, HTN, gastroparesis, GERD, depression, anxiety, and borderline personality disorder. Pt admitted to ICU for further evaluation and management. DCP met with pt this morning to discuss discharge needs. Pt laying in bed. DCP introduced self and role. Pt states that she is here to help assist her friend who just had surgery. Pt is from [place] and does not have any family here in [place]. Pt states that she is fairly independent at baseline. Pt does drive POV. Pt states that she will need help finding transportation upon discharge. DCP suggested that she contact her friend to see if they know anyone locally who could transport her. DCP also recommended Uber/Lyft/Taxi or if MD agrees, could ride the bus back to [facility]. Pt states she is supposed to go back home to [place] on . Pt verbalized understanding. White board updated and instructed to call. Pt thankful for discussion. P: Pt to continue management for DKA. Once medically stable, pt to discharge back to [facility]. Transportation TBD. Diana Pearce RN/ARNAUDP Discharge Planning/Care Management CM Discharge Assessment Start: 05/07/22 08:25 Freq: Status: Active Protocol: Document 05/07/22 10:51 MAGEN (Rec: 05/07/22 10:52 [id number]) Discharge Planning Assessment Assigned Clinical Nutritionist Diana Pearce RN/HAYLEE Advance Directives? No History Provided By Patient Prior Living Arrangements House Household Members significant other Type of transporation used prior to Drives own vehicle admit Comment However, pt visiting from out of town and does not have any transportation. Independent with ADL's Yes Is patient alert and oriented? Yes Caregiver for Another No Discharge Plan Home Transportation Arrangement Will need to contact friend to ask if anyone able to pick her up or she would need to use Uber/Lyft or bus. Referrals Initiated None needed Whiteboard Updated in Patient Room with Yes name and ext. # of Clinical Nutritionist Comment Instructed to call Review Status In Process Please Provide Date Initial DC 05/07/22 Assessment Was Performed Next Review Type Continued Stay Review
[2022-05-07 14:05] LABS: BUN Creatinine Ratio 7.8 (6-22); Blood Urea Nitrogen 4 mg/dL (7-17); Calcium 9.3 mg/dL (8.4-10.2); Carbon Dioxide 17 mmol/L (22-32); Chloride 105 mmol/L (98-107); Estimated Glomerular Filt Rate > 60 mL/min (>60); Glucose 172 mg/dL (70-100); HEMOLYSIS < 15 (0-50); Potassium 4.5 mmol/L (3.4-5.1); Sodium 136 mmol/L (137-145)
[2022-05-07 18:01] LABS: Blood Urea Nitrogen 4 mg/dL (7-17); Calcium 9.3 mg/dL (8.4-10.2); Carbon Dioxide 18 mmol/L (22-32); Chloride 103 mmol/L (98-107); Estimated Glomerular Filt Rate > 60 mL/min (>60); Glucose 155 mg/dL (70-100); HEMOLYSIS 39 (0-50); Potassium 4.2 mmol/L (3.4-5.1); Sodium 138 mmol/L (137-145)
--- NOTE | 2022-05-07 20:42 | PM.ICURNDS ---
- Date Patient Seen: 05/07/22 Time Patient Seen: 20:43 :: This patient was seen via real time interactive two-way audiovisual telecommunication. Note: remains in DKA, ag open, tachyardic advised to give 1L of ivf bolus add nexium 40mg po continue protocol
[2022-05-07] MEDS: METOPROLOL ER 50 MG TABLET 75 MG PO (21:06)
[2022-05-07] MEDS: LACTATED RINGERS 1,000 ML 1000 ML IV (21:06)
[2022-05-07] MEDS: INSULIN NPH 100 UNIT/ML VIAL 50 UNIT SUBCUT (21:47)
[2022-05-07 22:26] LABS: Calcium 8.2 mg/dL (8.4-10.2); Carbon Dioxide 16 mmol/L (22-32); Chloride 106 mmol/L (98-107); Estimated Glomerular Filt Rate > 60 mL/min (>60); Glucose 176 mg/dL (70-100); HEMOLYSIS < 15 (0-50); Potassium 3.4 mmol/L (3.4-5.1); Sodium 136 mmol/L (137-145)
[2022-05-07 22:27] LABS: BUN Creatinine Ratio 5.6 (6-22); Blood Urea Nitrogen 2 mg/dL (7-17)
[2022-05-08] VITALS (14 sets, daily range): BP systolic 108–160; BP diastolic 54–101; PULSE 81–117; RESP 8–25; TEMP 36.1–37.1; O2SAT 95–100
[2022-05-08 01:36] LABS: Blood Urea Nitrogen 3 mg/dL (7-17); Calcium 8.2 mg/dL (8.4-10.2); Carbon Dioxide 21 mmol/L (22-32); Chloride 105 mmol/L (98-107); Estimated Glomerular Filt Rate > 60 mL/min (>60); Glucose 149 mg/dL (70-100); HEMOLYSIS 28 (0-50); Potassium 3.2 mmol/L (3.4-5.1); Sodium 137 mmol/L (137-145)
[2022-05-08] MEDS: POTASSIUM CHLORIDE 20 MEQ TAB 40 MEQ PO (02:04)
[2022-05-08] MEDS: INSULIN DRIP PREMIX 100 UNIT/100 ML PLAST..BAG IV (02:04)
[2022-05-08] MEDS: DEXTROSE 5%-0.45% NS 1,000 ML 100 ML IV (02:07)
[2022-05-08 05:19] LABS: Add Manual Diff / Slide Review NO; Basophils Absolute Auto 100 /uL (0-100); Basophils Percent Auto 1.1 % (0-2); Eosinophils Absolute Auto 300 /uL (0-450); Eosinophils Percent Auto 2.2 % (2-4); Hematocrit 36.3 % (36-46); Hemoglobin 11.6 g/dL (12.0-16.0); Lymphocytes Absolute Auto 3300 /uL (1100-4500); Lymphocytes Percent Auto 28.8 % (25-40); Mean Corpuscular HGB Conc 32.1 % (30-36); Mean Corpuscular Hemoglobin 23.8 PG (26-34); Mean Corpuscular Volume 74.2 fL (80-100); Monocytes Absolute Auto 900 /uL (0-900); Monocytes Percent Auto 8.3 % (3-14); Neutrophils Absolute Auto 6700 /uL (1500-7000); Neutrophils Percent Auto 59.6 % (50-75); Platelet Count 301 X10^3/uL (150-400); Red Blood Cell Count 4.89 X10^6/uL (4.0-5.2); Red Cell Distribution Width 15.2 % (11.6-14.8); White Blood Cell Count 11.3 X10^3/uL (4.5-11.0)
[2022-05-08 05:30] LABS: Alanine Aminotransferase 21 IU/L (<35); Albumin 3.6 g/dL (3.5-5.0); Albumin Globulin Ratio 1.1 (1.0-2.8); Alkaline Phosphatase 79 U/L (38-126); Aspartate Aminotransferase 22 IU/L (14-36); Bilirubin Total 0.5 mg/dL (0.2-1.3); Blood Urea Nitrogen 3 mg/dL (7-17); Calcium 8.3 mg/dL (8.4-10.2); Carbon Dioxide 22 mmol/L (22-32); Chloride 104 mmol/L (98-107); Estimated Glomerular Filt Rate > 60 mL/min (>60); Globulin 3.3 g/dL (1.7-4.1); Glucose 149 mg/dL (70-100); HEMOLYSIS 29 (0-50); Potassium 3.3 mmol/L (3.4-5.1); Sodium 135 mmol/L (137-145); Total Protein 6.9 g/dL (6.3-8.2)
[2022-05-08 05:31] LABS: Ketones (Beta-Hydroxybutyrate) 0.77 mmol/L (<0.27)
[2022-05-08] MEDS: PANTOPRAZOLE DR 40 MG TABLET PO (06:42)
[2022-05-08] MEDS: POTASSIUM CHLORIDE 20 MEQ TAB PO (06:42)
[2022-05-08] MEDS: POTASSIUM CHLORIDE IN WATER 10 MEQ/100 ML PIGGYBACK 100 MEQ IV ×4 (06:43→10:10)
[2022-05-08] MEDS: HYDROMORPHONE 0.5 MG INJ IV (08:03)
[2022-05-08] MEDS: ASPIRIN 81 MG CHEW TAB PO (09:05)
[2022-05-08] MEDS: PRAVASTATIN 20 MG TABLET 80 MG PO (09:05)
[2022-05-08] MEDS: METOPROLOL ER 50 MG TABLET 75 MG PO (09:05)
[2022-05-08] MEDS: FAMOTIDINE 20 MG/2 ML VIAL IV (09:05)
[2022-05-08] MEDS: ENOXAPARIN 40 MG/0.4 ML SYRINGE SUBCUT (09:05)
[2022-05-08] MEDS: INSULIN NPH 100 UNIT/ML VIAL 50 UNIT SUBCUT (09:07)
--- NOTE | 2022-05-08 09:24 | PM.DS.1 ---
History of Present Illness History of Present Illness Date Patient Seen: 05/08/22 Time Patient Seen: 10:00 Chief complaint: DKA Narrative: Aruna Durand is a 36 y.o. female with diabetes type 2, hypertension, gastroparesis, GERD, insomnia, depression, anxiety, and borderline personality disorder originating from [place] to assist a friend with ?medical issues is admitted as a direct transfer from [facility] with euglycemic diabetic ketoacidosis.? She stated her symptoms started this past Friday with no appetite and when she did eat she had 1 ?[employer]? meal consisting of 2 burritos.? On Friday she was continuing to not feel well and took a small bite of food and promptly vomited.? She states that she has been thirsty and drank 4 L bottles of water but kept throwing up.? She presented to [facility] Emergency Department on Friday which was yesterday and left due to it being very busy.? She did return today and was found to be in DKA.? She denies fevers sweats or chills but states she is overheated most of the time she has shortness of breath abdominal pain and history of gastric acid.? She also has bouts of constipation due to gastroparesis.? She denies chest pain, dysuria, diarrhea, or upper lower extremity polyneuropathies. Patient's temp is recorded as 97.4 blood pressure 150/94 heart rate 141 respiratory rate 20 oxygen saturation of 100% on room air she weighs 108.5 kg.? White count is 22.4 RBC 5.58 she has a significant left shift of 18,000, platelet count 427, sodium is 135 potassium 4.5 chloride 108 bicarb 9 BUN 3 glucose 182 an COVID PCR is negative.? Hepatic liver panel, lactate, procalcitonin and TSH are all pending.? [facility] hemoglobin A1c was reported at 7.8.? Chest x-ray is ordered and pending. Discharge Providers Provider Date of admission: 05/06/22 16:02 Discharge Date: 05/08/22 Consults: 05/06/22 18:58 Consult to Tele-laster hand Routine Comment: Consulting Provider: Manjeet [employer] Reason for consultation: Window Clerk services Discharge provider: Mike Marinelli DO Summary Hospital Course Discharge Diagnosis: Euglycemic DKA, acute and present on admission patient takes jardiance, presented to [facility] with anion gap 31, bicarb 9 and pH 7.19 although BG of 250 required insulin drip with closure of anion gap and started home humulin at 50 units BID, normally takes 70 units BID had patient stop taking jardiance on discharge Nausea and vomiting, acute, present on admission Potentially due to DKA Abd US shows gallbladder sludge, stones and mild distention, but no wall thickening or CBD dilation. With normal LFT's and alk phos cholecystitis unlikely. IV Zofran and Reglan as needed improved and patient tolerated po intake Abdominal pain, acute, present on admission possible due to constipation as patient not had BM in 4 days she deferred laxatives saying she can't defecate while in the hospital Essential hypertension, not well controlled, present on admission continued metoprolol 75 mg p.o. twice daily Leukocytosis of unknown cause, present on admission, improving Procalcitonin, chest x-ray and UA normal likely stress reaction with dehydration from vomiting as all 3 cell lines decreased with fluids lowered to 11.3 without any treatment other than for DKA Hospital Course: Admitted for euglycemic DKA while on jardiance. Required insulin drip x48 hours until gap closed. Initally with [place] and abd pain but this improved and she was able to tolerate po intake. US gallbladder showed stones and sludge but otherwise no evidence of cholecystitis with elevation of LFT's or alk phos. Abd pain was more generalized than in RUQ. [place] to be due to constipation as no BM in 4 days. Patient will f/u with gen surg as outpatient for gallbladder removal. Elected not to take laxatives but go home to work on constipation. Jardiance stopped on dc due to risk of repeated euglycemic DKA. Time Spent with Patient Time spent: Greater than 30 minutes Exam Vital Signs (past 8 hours): - 05/08/22 02:00 05/08/22 02:00 05/08/22 03:00 Temperature Pulse Rate 97 H Respiratory Rate 17 Blood Pressure 145/78 H 111/57 L Pulse Oximetry 99 Oxygen Delivery Method 05/08/22 03:00 05/08/22 04:00 05/08/22 04:00 Temperature 97.0 F L Pulse Rate 82 85 Respiratory Rate 17 23 Blood Pressure 128/67 Pulse Oximetry 99 99 Oxygen Delivery Method 05/08/22 04:00 05/08/22 05:00 05/08/22 05:00 Temperature Pulse Rate 86 Respiratory Rate 18 Blood Pressure 114/70 Pulse Oximetry 95 Oxygen Delivery Method Room Air 05/08/22 06:00 05/08/22 06:00 05/08/22 07:00 Temperature Pulse Rate 81 Respiratory Rate 16 Blood Pressure 112/55 L 153/101 H Pulse Oximetry 98 Oxygen Delivery Method 05/08/22 07:00 05/08/22 08:00 05/08/22 08:00 Temperature 98.8 F Pulse Rate 117 H 106 H Respiratory Rate 25 H 14 Blood Pressure 142/80 H Pulse Oximetry 100 100 Oxygen Delivery Method Oxygen Delivery Method Room Air Narrative Exam Narrative: Gen: Alert, oriented, obese 36 y.o. female, appears tired HEENT: normocephalic, atraumatic, conjunctiva clear, sclera non-icteric, oral mucosa pink and moist Neck: supple, full ROM, no JVD, trachea is midline Resp: Lungs CTA, non-labored breathing CV: RRR, no murmur or rubs Abd: obese, soft, generalized tenderness, reduced BTs Skin: no lesions or rashes, dry and intact Neuro: Alert and oriented X 4 w/no focal deficits. Speech clear and coherent. Extremities: moves all 4 extremities, is ambulatory, negative Yessy?s sign Psyche: normal mood and affect. Objective Labs Result Diagrams: 05/08/22 05:00 05/08/22 05:00 Labs: Laboratory Results - last 24 hr 05/07/22 05/07/22 05/07/22 13:00 13:00 17:00 WBC RBC Hgb Hct MCV MCH MCHC RDW Plt Count Neut % (Auto) Lymph % (Auto) [place] % (Auto) Eos % (Auto) Baso % (Auto) Neut # (Auto) Lymph # (Auto) [place] # (Auto) Eos # (Auto) Baso # (Auto) Sodium 136 L 138 Potassium 4.5 4.2 Chloride 105 103 Carbon Dioxide 17 L 18 L BUN 4 L 4 L Creatinine 0.51 L 0.50 L Estimated GFR > 60 > 60 BUN/Creatinine Ratio 7.8 8.0 Glucose 172 H 155 H Calcium 9.3 9.3 Magnesium 2.0 Total Bilirubin AST ALT Alkaline Phosphatase Total Protein Albumin Globulin Albumin/Globulin Ratio Ketones 05/07/22 05/08/22 05/08/22 22:00 01:00 05:00 WBC 11.3 H RBC 4.89 Hgb 11.6 L Hct 36.3 MCV 74.2 L MCH 23.8 L MCHC 32.1 RDW 15.2 H Plt Count 301 Neut % (Auto) 59.6 Lymph % (Auto) 28.8 [place] % (Auto) 8.3 Eos % (Auto) 2.2 Baso % (Auto) 1.1 Neut # (Auto) 6700 Lymph # (Auto) 3300 [place] # (Auto) 900 Eos # (Auto) 300 Baso # (Auto) 100 Sodium 136 L 137 Potassium 3.4 3.2 L Chloride 106 105 Carbon Dioxide 16 L 21 L BUN 2 L 3 L Creatinine 0.36 L 0.43 L Estimated GFR > 60 > 60 BUN/Creatinine Ratio 5.6 L 7.0 Glucose 176 H 149 H Calcium 8.2 L 8.2 L Magnesium Total Bilirubin AST ALT Alkaline Phosphatase Total Protein Albumin Globulin Albumin/Globulin Ratio Ketones 05/08/22 05/08/22 05:00 05:00 WBC RBC Hgb Hct MCV MCH MCHC RDW Plt Count Neut % (Auto) Lymph % (Auto) [place] % (Auto) Eos % (Auto) Baso % (Auto) Neut # (Auto) Lymph # (Auto) [place] # (Auto) Eos # (Auto) Baso # (Auto) Sodium 135 L Potassium 3.3 L Chloride 104 Carbon Dioxide 22 BUN 3 L Creatinine 0.43 L Estimated GFR > 60 BUN/Creatinine Ratio 7.0 Glucose 149 H Calcium 8.3 L Magnesium Total Bilirubin 0.5 AST 22 ALT 21 Alkaline Phosphatase 79 Total Protein 6.9 Albumin 3.6 Globulin 3.3 Albumin/Globulin Ratio 1.1 Ketones 0.77 H [facility] Medical History Anxiety Borderline personality disorder Depression Diabetes type 2, uncontrolled DKA, type 2 Essential hypertension Gall bladder disease Gastroparesis GERD (gastroesophageal reflux disease) Hx of renal calculi Insomnia 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 Surgical History History of bilateral carpal tunnel release Family History Mother CVA (cerebral vascular accident) Father Diabetes mellitus Social History marital status: unmarried,single household members: significant other caregiver/support person: No occupational status: disabled Smoking Status: Never smoker alcohol intake: never substance use type: marijuana additional social history: Lives in [place] Discharge Plan Discharge Plan Patient Disposition: Home Provider Discharge Comment: You were admitted for DKA which is where your body creates too much acid due to your diabetes and high blood sugar. This was reversed with IV insulin and you improved. Please take you insulin and consider stopping your jardiance as this can sometimes cause DKA. Talk with your doctor about this and potentially trying a different agent like Trulicity, Victoza or Ozempic. These meds work really well and also can cause substantial weight loss. Discharge orders & Medications Prescriptions: Continued metoprolol succinate 50 mg Tablet Extended Release 24 Hr 75 mg PO BID pravastatin 80 mg Tablet 80 mg PO DAILY aspirin 81 mg Tablet 81 mg PO DAILY Fetzima 80 mg Capsule,Extended Release 24 Hr 80 mg PO DAILY Visit Report/Discharge Packet Instructions: DI for Diabetic Ketoacidosis Quality VTE Deep Vein Thrombosis/Pulmonary Embolism Present on Admission: No
[2022-05-08] MEDS: LACTULOSE 20 GM/30 ML SOLUTION PO (09:45)
== END 2022-05-08 13:15 | disposition home or self-care (01) | DRG 639 ==
LOC: AC 16:29 → ICU 20:08
PROVIDERS: Nurse Practitioner Family; Admitting Provider Student in an Organized Health Care Education/Training Program; Referring Provider Student in an Organized Health Care Education/Training Program; Visit Provider Student in an Organized Health Care Education/Training Program
DX: E11.10 Type 2 diabetes mellitus with ketoacidosis without coma (principal); I10 Essential (primary) hypertension; E86.0 Dehydration; F32.A Depression, unspecified; K21.9 Gastro-esophageal reflux disease without esophagitis; K59.00 Constipation, unspecified; Z79.84 Long term (current) use of oral hypoglycemic drugs; Z20.822 Contact with and (suspected) exposure to COVID-19
CPT/HCPCS: 36415; 71045; 76705; 80048; 80053; 80076; 81001; 82009; 82962; 83605; 83735; 84145; 84443; 85025; 87797; 99231; 99232; U0003; U0005; J1170; J1650; J1885; J2405; J2765